=== PATIENT | female | born 1940 | race Caucasian/White ===

== ENCOUNTER → 2019-10-12 | Outpatient (CLI) | payer MEDICARE, BC ==
[~2019-10-12] MED LIST: ACYC-113 PO; ASPI-515 PO; AZIT250T PO; BENZ-17 PO; CEFD300C37 PO; FURO-92 PO; LEVO50TA5 PO; MIDO5TAB9 PO; OMNIPAQUE 350 MG/ML, 100ML BOTTLE ONE; OSEL75CA14 PO; POMA1CAP PO; POTA20TA6 PO; PROC10TA78 PO; SEVE800T8 PO; SIMV20TA19 PO; ZOLP-413 PO
== END | disposition home or self-care (01) ==
LOC: RAD 10:57
PROVIDERS: ATTEND Internal Medicine Cardiovascular Disease
DX: I65.23 Occlusion and stenosis of bilateral carotid arteries (principal); J90 Pleural effusion, not elsewhere classified; I51.7 Cardiomegaly; J98.11 Atelectasis; M85.80 Other specified disorders of bone density and structure, unspecified site; I70.0 Atherosclerosis of aorta; K76.0 Fatty (change of) liver, not elsewhere classified; I35.0 Nonrheumatic aortic (valve) stenosis
CPT/HCPCS: 71275; 74174; 93880; Q9967

== ENCOUNTER 2019-10-31 12:39 | Outpatient (CLI) | payer MEDICARE, BC ==
[~2019-10-31 12:39] MED LIST changes: +ACET325T26 PO; +CALC0.25 PO; +CHEMO MEDICATION SQ; +CLOP75TA PO; +COUMADIN PO; +CYCL50CA3 PO; +DEXA4TAB66 PO; +Dexamethasone PO; +ERGO500017 PO; +ERGO50CA PO; +MEGE400O6 PO; -OMNIPAQUE 350 MG/ML, 100ML BOTTLE ONE; +[UNRECOGNIZED DRUG - REMARK] PO
== END 2019-10-31 23:59 | disposition home or self-care (01) ==
LOC: CFH 12:39
PROVIDERS: ATTEND Nurse Practitioner Family
DX: R18.8 Other ascites (principal); M79.81 Nontraumatic hematoma of soft tissue; D64.9 Anemia, unspecified; J90 Pleural effusion, not elsewhere classified; M51.35 Other intervertebral disc degeneration, thoracolumbar region; R91.8 Other nonspecific abnormal finding of lung field
CPT/HCPCS: 74176

== ENCOUNTER 2019-11-07 14:58 | Emergency (ER) | payer MEDICARE, BC ==
[~2019-11-07] VITALS: Ht 165.1 cm; Wt 45.0 kg
--- NOTE | 2019-11-07 15:15 | NUR ---
PT BIB [facility], PT WITH SYNCOPAL EPISODE WHILE AT DIALYSIS TODAY. PT HIT HEAD, BACK AND HEMATOMA TO LLE. EMS THEN ARRIVED AND PT HAD 2 ADDITIONAL SYNCOPAL EVENTS. BP PER EMS NOTED TO BE SLIGHTLY LOW 80S SYSTOLIC, PT RECIEVED 250CC BOLUS. PER PT HER BP RUNS LOW NORMALLY. [facility] ON EMS ARRIVAL 101 PT ARRIVES [id number]. NO NEURO DEFICITS NOTED. BP 93/63.
--- NOTE | 2019-11-07 15:29 | NUR ---
ERMD IN TO EVAL PT, AWAITING ORDERS
--- NOTE | 2019-11-07 15:53 | NUR ---
PT WITH BP 78/50.. RECHECKED 82/48. PT DENIES SMPTOMS OF THIS, AGAIN STATES THAT SHE ALWAYS RUNS LOW AND THAT SHE TAKES MIDODRINE FOR THIS. THIS MED IS NOT LISTED ON HER MEDICATION LIST. PT STATES SHE DIDNT TAKE HER DOSE TODAY. ERMD UPDATED. NO ADDITIONAL ORDERS AT THIS TIME
--- NOTE | 2019-11-07 17:14 | NUR ---
PT RESTING ON GURNEY AT THIS TIME, SKIN TEAR AND BACK ABRASION CLEANSED AND DRESSED, BP IMPROVED 116/59
[2019-11-07 17:15] LABS: ALBUMIN 2.1 g/dL (3.4-5.0); ANION GAP 12 mmol/L (5-15); CALCIUM 7.8 mg/dL (8.5-10.1); CHLORIDE 97 mmol/L (98-107)
[2019-11-07 17:19] LABS: ALANINE AMINOTRANSFERASE 44 U/L (12-78); ALKALINE PHOSPHATASE 185 U/L (45-117); CREATININE 8.23 mg/dL (0.55-1.02); TOTAL PROTEIN 5.5 g/dL (6.4-8.2)
[2019-11-07 17:34] LABS: MEAN CORPUSCULAR HEMOGLOBIN 32.1 pg (27.0-34.8); MEAN CORPUSCULAR HGB CONC 34.2 g/dL (32.4-35.8); MEAN CORPUSCULAR VOLUME 93.7 fL (80-100); MEAN PLATELET VOLUME 9.9 fL (7.4-10.4); RED BLOOD COUNT 3.48 x10^6/uL (3.82-5.3); RED CELL DISTRIBUTION WIDTH 18.5 % (9.6-15.2)
[2019-11-07 17:37] LABS: PLATELET COUNT 31 x10^3/uL (130-400)
--- NOTE | 2019-11-07 17:58 | NUR ---
MED SLIP SENT TO PHARM
[2019-11-07] MEDS ORDERED: MIDODRINE 5 MG TABLET PO SCH (18:00)
[2019-11-07 18:07] VITALS: BP 115/59
--- NOTE | 2019-11-07 18:08 | NUR ---
PT MEDICATED PER MAR
[2019-11-07 18:12] LABS: BASOPHILS # (AUTO) 0.03 x10^3/uL (0-0.1); BASOPHILS % (AUTO) 1 % (0-1); EOSINOPHILS # (AUTO) 0.03 x10^3/uL (0-0.4); EOSINOPHILS % (AUTO) 1 % (1-7); LYMPHOCYTES # (AUTO) 0.31 x10^3/uL (1-3.4); LYMPHOCYTES % (AUTO) 8 % (22-44); MD MORPH REVIEW ONLY; MONOCYTES # (AUTO) 0.34 x10^3/uL (0.2-0.8); MONOCYTES % (AUTO) 9 % (2-9); NEUTROPHILS # (AUTO) 3.15 x10^3/uL (1.8-6.8); NEUTROPHILS % (AUTO) 82 % (42-75)
[2019-11-07 18:14] LABS: ANISOCYTOSIS 2+
[2019-11-07 18:15] LABS: OVALOCYTES 1+; POLYCHROMASIA 1+
[2019-11-07 18:16] LABS: <PLATELET ESTIMATE> DECREASED; <PLT MORPHOLOGY> NORMAL PLT MORPH; HOWELL-JOLLY BODIES 1+
== END 2019-11-07 18:37 | disposition home or self-care (01) ==
LOC: ED 17:47
DX: N18.6 End stage renal disease (principal); I50.9 Heart failure, unspecified; I45.10 Unspecified right bundle-branch block; R55 Syncope and collapse; R42 Dizziness and giddiness; D69.59 Other secondary thrombocytopenia; Z99.2 Dependence on renal dialysis
CPT/HCPCS: 36415; 71045; 80053; 85025; 93005; 99285

== ENCOUNTER 2019-11-08 16:59 | Emergency (ER) | payer MEDICARE, BC ==
[~2019-11-08] VITALS: Ht 165.1 cm; Wt 44.5 kg
[2019-11-08] MEDS ORDERED: SODIUM CHLORIDE 0.9% 1,000ML IVBOLUS ONE (17:30)
--- NOTE | 2019-11-08 17:30 | NUR ---
THIS TECH DID EKG
--- NOTE | 2019-11-08 17:45 | NUR ---
TO CT PER EDGAR
[2019-11-08 17:51] LABS: ALANINE AMINOTRANSFERASE 34 U/L (12-78); ANION GAP 9 mmol/L (5-15); CALCIUM 7.6 mg/dL (8.5-10.1); CHLORIDE 95 mmol/L (98-107); CREATININE 8.27 mg/dL (0.55-1.02)
[2019-11-08 17:55] LABS: ALKALINE PHOSPHATASE 150 U/L (45-117); BILIRUBIN,TOTAL 0.7 mg/dL (0.2-1.0); TROPONIN I 0.119 ng/mL (0.000-0.045)
[2019-11-08 18:05] LABS: BASOPHILS # (AUTO) 0.03 x10^3/uL (0-0.1); BASOPHILS % (AUTO) 1 % (0-1); EOSINOPHILS # (AUTO) 0.03 x10^3/uL (0-0.4); EOSINOPHILS % (AUTO) 1 % (1-7); LYMPHOCYTES # (AUTO) 0.28 x10^3/uL (1-3.4); LYMPHOCYTES % (AUTO) 7 % (22-44); MD MORPH REVIEW ONLY; MEAN CORPUSCULAR HEMOGLOBIN 31.6 pg (27.0-34.8); MEAN CORPUSCULAR HGB CONC 33.6 g/dL (32.4-35.8); MEAN CORPUSCULAR VOLUME 93.9 fL (80-100); MEAN PLATELET VOLUME 9.9 fL (7.4-10.4); MONOCYTES # (AUTO) 0.38 x10^3/uL (0.2-0.8); MONOCYTES % (AUTO) 9 % (2-9); NEUTROPHILS # (AUTO) 3.46 x10^3/uL (1.8-6.8); NEUTROPHILS % (AUTO) 83 % (42-75); RED BLOOD COUNT 3.12 x10^6/uL (3.82-5.3); RED CELL DISTRIBUTION WIDTH 19.1 % (9.6-15.2)
[2019-11-08 18:06] LABS: ANISOCYTOSIS 2+
[2019-11-08 18:07] LABS: <PLATELET ESTIMATE> DECREASED; LARGE PLATELETS 1+; OVALOCYTES 1+; POLYCHROMASIA 1+; SCHISTOCYTES 1+
[2019-11-08 18:09] LABS: PLATELET COUNT 40 x10^3/uL (130-400)
--- NOTE | 2019-11-08 18:37 | NUR ---
PT RESTING QUIETLY ON GURNEY. STATES SHE GOT DIZZY TODAY; STATED "I PROBABLY STAYED OUTSIDE IN THE SUN TOO LONG TODAY".
--- NOTE | 2019-11-08 18:58 | NUR ---
DR RAMIREZ AT
[2019-11-08] MEDS ORDERED: SODIUM CHLORIDE FLUSH 10ML SYR IVF PRN (20:00)
--- NOTE | 2019-11-08 20:36 | NUR ---
PER DR RAMIREZ, PT ADMISSION MAY BE CANCELED.
[2019-11-08 20:45] VITALS: BP 151/67
== END 2019-11-08 21:17 | disposition home or self-care (01) ==
LOC: ED 18:22 → EDIP 19:58 → UNDOADMIN 19:58 → ED 21:17
DX: R55 Syncope and collapse (principal); R42 Dizziness and giddiness; R51 Headache; R94.31 Abnormal electrocardiogram [ECG] [EKG]; Z95.0 Presence of cardiac pacemaker; I50.9 Heart failure, unspecified
CPT/HCPCS: 36415; 70450; 71045; 80053; 84484; 85025; 93005; 99285; J7030